=== PATIENT | female | born 1990 | race Caucasian/White ===

== ENCOUNTER 2020-01-10 00:03 | Emergency (ER) | payer OTHER ==
[2020-01-10] MEDS ORDERED: ASPIRIN 81 MG PO STA (00:30)
[2020-01-10] MEDS ORDERED: LORazepam 2 MG/ML INJ IV STA (00:30)
[2020-01-10] MEDS ORDERED: MORPHINE SULFATE 2 MG/ML SYRINGE IVP STA (00:30)
--- NOTE | 2020-01-10 00:42 | ED ---
Chest Pain HPI - General Chief Complaint: Chest Pain Stated Complaint: chest pain Time Seen by Provider: 01/10/20 00:16 Source: patient Mode of arrival: ambulatory Limitations: no limitations - History of Present Illness Initial Comments: 29yo female presenting today for chest pain x 1 week. Patient states that this week she has been experiencing sharp left sided chest pain that is almost constant, increases with lying flat and when taking deep breath. Denies chest pressure. Admits to shortness of breath. She states she has cough. Denies fevers, significant abdominal pain, diarrhea, vomiting. Patient denies CARTER, neck stiffness. Patient denies leg swelling,hemoptysis, history of DVT/PE, recent surgeries or travel. Denies smoking history admits to family history of CAD. She states the pain seems to also go towards her left arm. Patient family thought that she was a hypochondriac per patient and that is why she did not present sooner. Patient denies nausea, jaw pain, IVDU. Denies any other complaints. Upon arrival patient appears well there is no signs of acute distress. - Related Data Allergies Allergy/AdvReac Type Severity Reaction Status Date / Time No Known Allergies Allergy Verified 01/10/20 00:10 Review of Systems ROS Statement: Those systems with pertinent positive or pertinent negative responses have been documented in the HPI. ROS Other: All systems not noted in ROS Statement are negative. EKG Findings - EKG Comments: EKG Findings:: Ventricular rate 99 bpm, MA interval 154 ms, QRS duration 90 ms, QT/QTc 330/423. This is normal sinus rhythm. There is significant artifact in the leads 2&3 most likely due to tremor, T wave inversion in lead 3 are appreciated, No ST elevation or depression. Past Medical History Past Medical History: Rheumatoid Arthritis (RA) History of Any Multi-Drug Resistant Organisms: None Reported Past Surgical History: No Surgical Hx Reported Past Psychological History: No Psychological Hx Reported Smoking Status: Current every day smoker Past Alcohol Use History: Occasional Past Drug Use History: None Reported General Exam - General Exam Comments Initial Comments: General: The patient is awake and alert, in no distress Eye: +3 mm pupils are equal, round and reactive to light, extra-ocular movements are intact. No nystagmus. There is normal conjunctiva bilaterally. No signs of icterus. Ears, nose, mouth and throat: There are moist mucous membranes and no oral lesions. Neck: The neck is supple, there is no tenderness or JVD. Cardiovascular: There is a regular rate and rhythm. No murmur, rub or gallop is appreciated. Respiratory: Lungs are clear to auscultation, respirations are non-labored, breath sounds are equal. No wheezes, stridor, rales, or rhonchi. Gastrointestinal: Soft, non-distended, non-tender abdomen without masses or organomegaly noted. There is no rebound or guarding present. Musculoskeletal: Normal ROM, no tenderness. Strength 5/5. Sensation intact. Radial pulses equal bilaterally 2+. Neurological: A&O x 3. CN II-XII intact grossly, There are no obvious motor or sensory deficits. Coordination appears grossly intact. Speech is normal. Skin: Skin is warm and dry and no rashes or lesions are noted. No calf pain, no LE edema or swelling Psychiatric: Cooperative, appropriate mood & affect, normal judgment. Limitations: no limitations Course Vital Signs 01/10/20 01/10/20 01/10/20 00:05 01:23 02:01 Temperature 98.1 F 98.4 F Pulse Rate 100 90 104 H Respiratory 18 18 16 Rate Blood Pressure 164/83 140/80 124/84 O2 Sat by Pulse 98 98 100 Oximetry 01/10/20 03:11 Temperature Pulse Rate 96 Respiratory 20 Rate Blood Pressure 140/60 O2 Sat by Pulse 98 Oximetry Chest Pain MDM - MDM 29yo female presenting for SOB, chest pain. Appears atypical-patient complaining of URI symptoms--sick contacts at work. Troponin (-). EKG no acute findings. CXR clear. Dimer (-). Patient will be discharged as VS stable, she appears well. REcommend self quarantine for 14 days for URI symptoms. Return parameters such as SOB worsening symptoms discussed at length, as well as importance of PCP f/u. Patient discharged appearing well after discussing case with Dr. Cutler Disposition Clinical Impression: Pleuritis, Chest pain, Cough Disposition: HOME SELF-CARE Condition: Good Instructions (If sedation given, give patient instructions): Pleurisy (DC) Additional Instructions: Please use medication as discussed. Please follow-up with family doctor in the next 2 days. Please return to emergency room if the symptoms increase or worsen or for any other concerns. Is patient prescribed a controlled substance at d/c from ED?: No Referrals: None,Stated [Primary Care Provider] - 1-2 days [facility] [NON-STAFF] - 1-2 days Time of Disposition: 02:52
--- NOTE | 2020-01-10 01:16 | XR ---
EXAMINATION TYPE: XR chest 2V DATE OF EXAM: 01/10/2020 COMPARISON: October 09, 2011 HISTORY: Short of breath. Chest pain TECHNIQUE: FINDINGS: Heart and mediastinum are normal. Lungs are clear. Diaphragm is normal. Bony thorax appears normal. IMPRESSION: Normal chest. No change.
[2020-01-10 01:24] LABS: Basophils % (A) 0 %; Eosinophils # (A) 0.2 k/uL (0-0.7); Eosinophils % (A) 2 %; HCT 42.2 % (34.0-46.0); HGB 13.9 gm/dL (11.4-16.0); Lymphocytes # (A) 2.5 k/uL (1.0-4.8); Lymphocytes % (A) 24 %; MCH 28.6 pg (25.0-35.0); MCHC 32.9 g/dL (31.0-37.0); MCV 87.1 fL (80.0-100.0); Mean Platelet Volume 7.7; Monocytes # (A) 0.7 k/uL (0-1.0); Monocytes % (A) 7 %; Neutrophils # (A) 6.8 k/uL (1.3-7.7); Neutrophils % (A) 65 %; Platelet Count 340 k/uL (150-450); RBC 4.84 m/uL (3.80-5.40); RDW 12.7 % (11.5-15.5); WBC 10.5 k/uL (3.8-10.6)
[2020-01-10 01:38] LABS: ALT 10 U/L (4-34); AST 19 U/L (14-36); African American GFR (CKD) >90 (>60 ml/min/1.73 sqM); Alkaline Phosphatase 72 U/L (38-126); Anion Gap 10 mmol/L; Blood Urea Nitrogen 15 mg/dL (7-17); Carbon Dioxide 29 mmol/L (22-30); Chloride 101 mmol/L (98-107); Glucose 81 mg/dL (74-99); Non-African American GFR(CKD) >90 (>60 ml/min/1.73 sqM); Potassium 3.9 mmol/L (3.5-5.1); Sodium 140 mmol/L (137-145); Total Bilirubin 0.2 mg/dL (0.2-1.3); Total Protein 8.7 g/dL (6.3-8.2)
[2020-01-10 01:44] LABS: D-Dimer 0.4 mg/L FEU (<0.60); INR 0.9 (<1.2); Partial Thromboplastin Time 25.1 sec (22.0-30.0); Prothrombin Time 9.4 sec (9.0-12.0)
[2020-01-10 02:04] VITALS: TEMP 98.4
[2020-01-10 03:12] VITALS: BP 140/60; PULSE 96; RESP 20
== END 2020-01-10 03:28 | disposition home or self-care (01) ==
LOC: EC 00:03
DX: R09.1 Pleurisy (principal); R05 Cough; R06.02 Shortness of breath; M79.602 Pain in left arm; F17.200 Nicotine dependence, unspecified, uncomplicated; Z82.49 Family history of ischemic heart disease and other diseases of the circulatory system
CPT/HCPCS: 36415; 93005; 85379; 80053; 83735; 84484; 85025; 85610; 85730; 71046; 99285; 96374; 96375; J2060; J2270

== ENCOUNTER → 2021-12-23 | Outpatient (CLI) | payer OTHER ==
--- NOTE | 2021-12-28 11:18 | USB ---
Reason for exam: clinical finding. Physical Findings: A clinical breast exam by your physician is recommended on an annual basis and results should be correlated with mammographic findings. US Breast LT Left complete breast ultrasound includes all four quadrants, the retroareolar region and axilla. Finding demonstrates a 0.7 x 0.3 x 0.6cm oval, cystic lesion at 3 o'clock, probable benign thin walled cyst. Entire breast scanned, pain at 3 o'clock. ASSESSMENT: Benign, BI-RAD 2 RECOMMENDATION: Routine screening mammogram of both breasts at age 39. Manage patient on a clinical basis.
== END | disposition home or self-care (01) ==
LOC: RADUSWWP 14:56
PROVIDERS: ATTEND Family Medicine
DX: N64.4 Mastodynia (principal)

== ENCOUNTER 2022-01-31 08:03 | Emergency (ER) | payer OTHER ==
--- NOTE | 2022-01-31 09:19 | XR ---
EXAMINATION TYPE: XR chest 2V DATE OF EXAM: 01/31/2022 COMPARISON: Chest x-ray January 10, 2020 HISTORY: IMAN. Hemoptysis. TECHNIQUE: Frontal and lateral views of the chest are obtained. FINDINGS: There is no focal air space opacity, pleural effusion, or pneumothorax seen. The cardiac silhouette size is within normal limits. The osseous structures are intact. IMPRESSION: No acute process. No significant change from prior.
--- NOTE | 2022-01-31 09:27 | ED ---
URI HPI - General Chief Complaint: Upper Respiratory Infection Stated Complaint: coughing up blood, chest burning Time Seen by Provider: 01/31/22 08:15 Source: patient Mode of arrival: ambulatory Limitations: no limitations - History of Present Illness Initial Comments: 31-year-old female with history of rheumatoid arthritis and hypothyroid presents to the emergency department with cough. States that she began coughing last night. This morning she ended up having hemoptysis. No history of similar in the past. Admits to mild left-sided chest discomfort. Patient mildly short of breath. No history of DVT or PE. Denies hematemesis. No fevers. No sick contacts with similar symptoms. No lower extremity swelling. Denies any street cardiac disease. No other alleviating, precipitating or modifying factors - Related Data Previous Rx's Medication Instructions Recorded Albuterol Inhaler [Ventolin Hfa 1 puff INHALATION RT-QID #8 gm 01/31/22 Inhaler] predniSONE [Deltasone] 20 mg PO BID #10 tab 01/31/22 Allergies Allergy/AdvReac Type Severity Reaction Status Date / Time No Known Allergies Allergy Verified 01/31/22 08:10 Review of Systems ROS Statement: Those systems with pertinent positive or pertinent negative responses have been documented in the HPI. ROS Other: All systems not noted in ROS Statement are negative. Past Medical History Past Medical History: Rheumatoid Arthritis (RA) History of Any Multi-Drug Resistant Organisms: None Reported Past Surgical History: No Surgical Hx Reported Past Psychological History: No Psychological Hx Reported Smoking Status: Never smoker Past Alcohol Use History: Occasional Past Drug Use History: None Reported General Exam Limitations: no limitations General appearance: alert, in no apparent distress Head exam: Present: atraumatic, normocephalic, normal inspection Eye exam: Present: normal appearance, PERRL, EOMI. Absent: scleral icterus, conjunctival injection, periorbital swelling ENT exam: Present: normal exam, mucous membranes moist Neck exam: Present: normal inspection. Absent: tenderness, meningismus, lymphadenopathy Respiratory exam: Present: normal lung sounds bilaterally. Absent: respiratory distress, wheezes, rales, rhonchi, stridor Cardiovascular Exam: Present: regular rate, normal rhythm, normal heart sounds. Absent: systolic murmur, diastolic murmur, rubs, gallop, clicks GI/Abdominal exam: Present: soft, normal bowel sounds. Absent: distended, tenderness, guarding, rebound, rigid Extremities exam: Present: normal inspection, full ROM, normal capillary refill. Absent: tenderness, pedal edema, joint swelling, calf tenderness Back exam: Present: normal inspection Neurological exam: Present: alert, oriented X3, CN II-XII intact Psychiatric exam: Present: normal affect, normal mood Skin exam: Present: warm, dry, intact, normal color. Absent: rash Course Vital Signs 01/31/22 01/31/22 01/31/22 08:06 09:02 11:12 Temperature 96.9 F L 97.7 F Pulse Rate 72 63 67 Respiratory 18 16 18 Rate Blood Pressure 124/79 128/78 134/83 O2 Sat by Pulse 97 98 99 Oximetry 01/31/22 11:36 Temperature Pulse Rate Respiratory 20 Rate Blood Pressure 132/81 O2 Sat by Pulse 99 Oximetry Medical Decision Making - Medical Decision Making Upon arrival patient is placed into room 28. A thorough history and physical e xam is performed. IV access established laboratory studies were conducted. D- dimer is negative. He will globin 13.7. Patient not . X-rays performed which demonstrates no acute process. Patient will be placed on prednisone and albuterol inhaler for her acute bronchitis. Instructed take medications as directed and felt the primary care doctor. Return for any new or worsening symptoms. Patient agreed with treatment plan and discharged home in stable condition - Lab Data Result diagrams: 01/31/22 08:58 01/31/22 08:58 Lab Results 01/31/22 01/31/22 01/31/22 Range/Units 08:58 08:58 08:58 WBC 8.0 (3.8-10.6) k/uL RBC 4.67 (3.80-5.40) m/uL Hgb 13.7 (11.4-16.0) gm/dL Hct 41.9 (34.0-46.0) % MCV 89.7 (80.0-100.0) fL MCH 29.3 (25.0-35.0) pg MCHC 32.7 (31.0-37.0) g/dL RDW 13.9 (11.5-15.5) % Plt Count 364 (150-450) k/uL MPV 7.8 Neutrophils % 64 % Lymphocytes % 23 % Monocytes % 6 % Eosinophils % 4 % Basophils % 1 % Neutrophils # 5.1 (1.3-7.7) k/uL Lymphocytes # 1.8 (1.0-4.8) k/uL Monocytes # 0.5 (0-1.0) k/uL Eosinophils # 0.4 (0-0.7) k/uL Basophils # 0.0 (0-0.2) k/uL PT 9.8 (9.0-12.0) sec INR 0.9 (<1.2) APTT 23.9 (22.0-30.0) sec D-Dimer 0.29 (<0.60) mg/L FEU Sodium 140 (137-145) mmol/L Potassium 4.2 (3.5-5.1) mmol/L Chloride 105 (98-107) mmol/L Carbon Dioxide 26 (22-30) mmol/L Anion Gap 9 mmol/L BUN 10 (7-17) mg/dL Creatinine 0.71 (0.52-1.04) mg/dL Est GFR (CKD-EPI)AfAm >90 (>60 ml/min/1.73 sqM) Est GFR (CKD-EPI)NonAf >90 (>60 ml/min/1.73 sqM) Glucose 93 (74-99) mg/dL Plasma Lactic Acid Low (0.7-2.0) mmol/L Calcium 9.2 (8.4-10.2) mg/dL Total Bilirubin 0.4 (0.2-1.3) mg/dL AST 22 (14-36) U/L ALT 12 (4-34) U/L Alkaline Phosphatase 67 (38-126) U/L Troponin I (0.000-0.034) ng/mL Total Protein 8.0 (6.3-8.2) g/dL Albumin 4.3 (3.5-5.0) g/dL Urine HCG, Qual (Not Detectd) 01/31/22 01/31/22 01/31/22 Range/Units 08:58 08:58 08:58 WBC (3.8-10.6) k/uL RBC (3.80-5.40) m/uL Hgb (11.4-16.0) gm/dL Hct (34.0-46.0) % MCV (80.0-100.0) fL MCH (25.0-35.0) pg MCHC (31.0-37.0) g/dL RDW (11.5-15.5) % Plt Count (150-450) k/uL MPV Neutrophils % % Lymphocytes % % Monocytes % % Eosinophils % % Basophils % % Neutrophils # (1.3-7.7) k/uL Lymphocytes # (1.0-4.8) k/uL Monocytes # (0-1.0) k/uL Eosinophils # (0-0.7) k/uL Basophils # (0-0.2) k/uL PT (9.0-12.0) sec INR (<1.2) APTT (22.0-30.0) sec D-Dimer (<0.60) mg/L FEU Sodium (137-145) mmol/L Potassium (3.5-5.1) mmol/L Chloride (98-107) mmol/L Carbon Dioxide (22-30) mmol/L Anion Gap mmol/L BUN (7-17) mg/dL Creatinine (0.52-1.04) mg/dL Est GFR (CKD-EPI)AfAm (>60 ml/min/1.73 sqM) Est GFR (CKD-EPI)NonAf (>60 ml/min/1.73 sqM) Glucose (74-99) mg/dL Plasma Lactic Acid Low 1.0 (0.7-2.0) mmol/L Calcium (8.4-10.2) mg/dL Total Bilirubin (0.2-1.3) mg/dL AST (14-36) U/L ALT (4-34) U/L Alkaline Phosphatase (38-126) U/L Troponin I <0.012 (0.000-0.034) ng/mL Total Protein (6.3-8.2) g/dL Albumin (3.5-5.0) g/dL Urine HCG, Qual Not Detected (Not Detectd) - EKG Data EKG Comments: EKG demonstrates sinus rhythm with a rate of 73. NH interval 188. QRS 88. QTC of 418. No acute ST segment elevations or depressions Disposition Clinical Impression: Cough, Hemoptysis Disposition: HOME SELF-CARE Condition: Stable Instructions (If sedation given, give patient instructions): Coughing Up Blood (Hemoptysis) (ED) Additional Instructions: Please use the inhaler every 4 hours and take the steroids as directed. Follow up with your primary care doctor. Return for any new or worsening symptoms. You may need a bronchoscopy if your symptoms continue. Prescriptions: predniSONE [Deltasone] 20 mg PO BID #10 tab Albuterol Inhaler [Ventolin Hfa Inhaler] 1 puff INHALATION RT-QID #8 gm Is patient prescribed a controlled substance at d/c from ED?: No Referrals: Ihsan Singh [Primary Care Provider] - 1-2 days Time of Disposition: 11:21
[2022-01-31 09:36] LABS: Basophils % (A) 1 %; Eosinophils # (A) 0.4 k/uL (0-0.7); Eosinophils % (A) 4 %; HCT 41.9 % (34.0-46.0); HGB 13.7 gm/dL (11.4-16.0); Lymphocytes # (A) 1.8 k/uL (1.0-4.8); Lymphocytes % (A) 23 %; MCH 29.3 pg (25.0-35.0); MCHC 32.7 g/dL (31.0-37.0); MCV 89.7 fL (80.0-100.0); Mean Platelet Volume 7.8; Monocytes # (A) 0.5 k/uL (0-1.0); Monocytes % (A) 6 %; Neutrophils # (A) 5.1 k/uL (1.3-7.7); Neutrophils % (A) 64 %; Platelet Count 364 k/uL (150-450); RBC 4.67 m/uL (3.80-5.40); RDW 13.9 % (11.5-15.5)
[2022-01-31 09:37] LABS: ALT 12 U/L (4-34); AST 22 U/L (14-36); African American GFR (CKD) >90 (>60 ml/min/1.73 sqM); Albumin 4.3 g/dL (3.5-5.0); Alkaline Phosphatase 67 U/L (38-126); Anion Gap 9 mmol/L; Blood Urea Nitrogen 10 mg/dL (7-17); Calcium 9.2 mg/dL (8.4-10.2); Carbon Dioxide 26 mmol/L (22-30); Chloride 105 mmol/L (98-107); Glucose 93 mg/dL (74-99); Non-African American GFR(CKD) >90 (>60 ml/min/1.73 sqM); Potassium 4.2 mmol/L (3.5-5.1); Sodium 140 mmol/L (137-145); Total Bilirubin 0.4 mg/dL (0.2-1.3)
[2022-01-31 09:50] LABS: INR 0.9 (<1.2); Partial Thromboplastin Time 23.9 sec (22.0-30.0); Prothrombin Time 9.8 sec (9.0-12.0)
[2022-01-31 11:15] VITALS: PULSE 67; TEMP 97.7
[2022-01-31] MEDS ORDERED: predniSONE 20 MG TAB PO STA (11:17)
[2022-01-31 11:38] VITALS: BP 132/81; RESP 20
== END 2022-01-31 11:38 | disposition home or self-care (01) ==
LOC: EC 08:03
DX: R04.2 Hemoptysis (principal)
CPT/HCPCS: 36415; 93005; 85379; 80053; 83605; 84484; 85025; 85610; 85730; 81025; 71046; 99285; J7512

== ENCOUNTER → 2023-04-11 | Outpatient (CLI) | payer OTHER ==
--- NOTE | 2023-04-11 17:38 | XR ---
EXAMINATION TYPE: XR foot complete LT DATE OF EXAM: 04/11/2023 5:32 PM INDICATION: Patient age:Female; 32 years old; Reason for study: M79.672; [facility]. COMPARISON: None TECHNIQUE: The left foot was examined in the AP, oblique, and lateral projections. FINDINGS: No evidence of any acute osseous pathology. No evidence of soft tissue swelling. Joints are preserve d. Tiny plantar and posterior calcaneal enthesophytes. IMPRESSION: No evidence of acute fracture.
== END | disposition home or self-care (01) ==
LOC: RADXRMAIN 17:20
PROVIDERS: ATTEND Family Medicine
DX: M79.672 Pain in left foot (principal)

== ENCOUNTER 2023-11-08 11:26 | Emergency (ER) | payer OTHER ==
--- NOTE | 2023-11-08 12:31 | ED ---
Abdominal Pain HPI - General Chief Complaint: Abdominal Pain Stated Complaint: Constipation Time Seen by Provider: 11/08/23 12:15 Source: patient, RN notes reviewed Mode of arrival: ambulatory Limitations: no limitations - History of Present Illness Initial Comments: Patient is a 32-year-old female significant past medical history for hypothyroid, presented to the emergency room today with a chief complaint of lower abdominal discomfort. Patient does admit that she changed her diet. She states that over the last 3 to 4 weeks she noticed that she had decreased bowel movements. She been trying to use laxatives and has even tried enemas. She states she has had some relief. States she has not had a good or normal bowel movement in 3 weeks. Patient does admit that she has passed gas. She denies any other complaints or any other symptoms. Patient denies any recent fever, chills, shortness of breath, chest pain, back pain, nausea or vomiting, numbness or tingling, headaches or visual changes, or any other complaints. - Related Data Previous Rx's Medication Instructions Recorded Albuterol Inhaler [Ventolin Hfa 1 puff INHALATION RT-QID #8 gm 01/31/22 Inhaler] predniSONE [Deltasone] 20 mg PO BID #10 tab 01/31/22 Allergies Allergy/AdvReac Type Severity Reaction Status Date / Time No Known Allergies Allergy Verified 01/31/22 08:10 Review of Systems ROS Statement: Those systems with pertinent positive or pertinent negative responses have been documented in the HPI. ROS Other: All systems not noted in ROS Statement are negative. Past Medical History Past Medical History: Rheumatoid Arthritis (RA), Thyroid Disorder History of Any Multi-Drug Resistant Organisms: None Reported Past Surgical History: No Surgical Hx Reported Past Psychological History: No Psychological Hx Reported Smoking Status: Never smoker Past Alcohol Use History: Occasional Past Drug Use History: None Reported General Exam - General Exam Comments Initial Comments: General: The patient is awake and alert, in no distress, and does not appear acutely ill. Eye: Extra-ocular movements are intact. There is normal conjunctiva bilaterally. No signs of icterus. Ears, nose, mouth and throat: There are moist mucous membranes and no oral lesions. Neck: The neck is supple, there is no tenderness or JVD. Respiratory: respirations are non-labored Gastrointestinal: Abdomen soft on palpation. No specific tenderness on palpation. No rebound, guarding or CVA tenderness. Musculoskeletal: Normal ROM, no tenderness. Strength 5/5. Sensation intact. Pulses equal bilaterally 2+. Neurological: A&O x 3. CN II-XII intact, There are no obvious motor or sensory deficits. Coordination appears grossly intact. Speech is normal. Skin: Skin is warm and dry and no rashes or lesions are noted. Psychiatric: Cooperative, appropriate mood & affect, normal judgment. Limitations: no limitations Course Vital Signs 11/08/23 11:27 Temperature 98.1 F Pulse Rate 96 Respiratory 16 Rate Blood Pressure 127/86 O2 Sat by Pulse 98 Oximetry Medical Decision Making - Medical Decision Making History was obtained from patient/Nurse/ Initial assessment and chief complaint: Constipation Chronic conditions affecting care: Rheumatoid arthritis, thyroid disease Social determinants affecting care: None Differential diagnosis included, but not limited to: Constipation, gastritis, colitis, gastroenteritis, diverticulitis Any imaging that may have been performed was also reviewed. I did an independent interpretation of the patient's imaging. My interpretation of KUB was obtained and does show moderate stool no sign of obstruction. 32-year-old female presented to the emergency room today with a chief complaint of concern for acute constipation. 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 States that she has been trying some stool softeners also a laxative a few days ago which she did have some success. States she has had some small bowel movements but states has not had anything significant that she feels more constipated. An x-ray was obtained and shows no sign of obstruction. There are some stool. Nothing down in the lower vault. Patient's abdomen is soft on palpation. Vitals are stable. Was discussed with patient about use of laxative. Advised to continue with stool softener. Was advised to try mag citrate and if no success to begin using MiraLAX 1-2 capful on a daily. Advised patient of concerns and reason to return to the emergency room. Patient states understanding and is in agreement with this plan. Disposition Clinical Impression: Constipation Disposition: HOME SELF-CARE Condition: Good Instructions (If sedation given, give patient instructions): Constipation (ED) Additional Instructions: Please continue with stool softeners, laxatives as discussed. Follow-up with PCP or return here to the emergency room if any symptoms increase or worsen or for any other concerns. Is patient prescribed a controlled substance at d/c from ED?: No Referrals: Rod Mcpherson MD [Primary Care Provider] - 1-2 days Time of Disposition: 13:13
--- NOTE | 2023-11-08 12:57 | XR ---
EXAMINATION TYPE: XR KUB DATE OF EXAM: 11/08/2023 Comparison: None Clinical History: 32-year-old female with abdominal pain, constipation Findings: Lung bases are clear. No evidence for free intraperitoneal air. Scattered mild to moderate stool with air extending distally to the rectum. No air-fluid levels or dilated small bowel loops. Small pelvic phlebolith on the right. Impression: No evidence for free air or bowel obstruction. Mild to moderate stool throughout.
[2023-11-08 13:36] VITALS: BP 117/77; PULSE 68; RESP 18; TEMP 97.9
== END 2023-11-08 15:18 | disposition home or self-care (01) ==
LOC: EC 11:26
DX: K59.00 Constipation, unspecified (principal)
CPT/HCPCS: 74018; 99284

== ENCOUNTER → 2025-02-10 | Outpatient (CLI) | payer BC ==
--- NOTE | 2025-02-10 17:00 | CA ---
Exercise Stress Test Report Name: Justyna Posey Exam Date: 02/10/2025 12:08 Exam Location: [facility] Stress Ht (in): 66 Wt (lb): 193 BSA: 1.97 Ordering Phys: Miah Hardin MD Referring Phys: Melissa Uribe PAC Technologist: breana ortiz Age: 34 Gender: F : 1990 Procedure CPT: Indications: R03.0 ELEVATED BLOOD-PRESSURE READING R55 SYNCOPE ICD-10 Codes: Patient History: Medications: LEVOTHYROXINE,,,, OXYBUTIN,,, Meds past 24 hrs: Pretest Chest Pain: STRESS TEST Van Protocol Exercise Duration (min:sec): 09:[address] Depressions (mm): Angina Score: Apple Score: Resting HR (bpm): 49 Peak HR (bpm): 164 Resting BP (mmHg): 105 / 72 Peak BP (mmHg): 152 / 60 MPHR: 185 Target HR: 157 % MPHR: 89 METS: 10.3 Total Dose: Peak Dose: Atropine: Double Product: 66481 BP Response: Stress Termination: TARGET HR REACHED/MAX EXERTION Stress Symptoms: NO SYMPTOMS Stress Summary: ECG ANALYSIS Resting ECG: Stress ECG: CONCLUSIONS Baseline EKG revealed normal sinus rhythm without significant ST-T changes. Patient walked on a standard Van protocol for 9 minutes and achieved a maximal heart rate of 164 bpm. There was no angina. There was no arrhythmia and there were no EKG changes to indicate ischemia. This is a negative stress test with fair exercise capacity Dr. Fortino Cerrato MD (Electronically Signed) Final Date: 10 Feb 2025 16:59
== END | disposition home or self-care (01) ==
LOC: RADNMMAIN 11:24
PROVIDERS: ATTEND Family Medicine
DX: R03.0 Elevated blood-pressure reading, without diagnosis of hypertension (principal); R55 Syncope and collapse
CPT/HCPCS: 93017